=== PATIENT | female | born 1990 | race Two or more races ===

== ENCOUNTER 2024-10-25 21:31 | Emergency (ER) | payer MEDICAID ==
[~2024-10-25] VITALS: Ht 160 cm; Wt 77.3 kg
[2024-10-26 00:26] VITALS: BP 99/61; PULSE 63; RESP 18; TEMP 98.7; O2SAT 99
[2024-10-26] MEDS ORDERED: ACET500T58 PO (00:34)
--- NOTE | 2024-10-26 00:34 | ED.PDOC ---
Musculoskeletal HPI Comments 34-year-old female presents to ER with complaints of right ankle pain x1 day. Patient reports that she started experiencing pain/swelling to right lateral ankle at 7:30 p.m. prior to arrival to ER s/p rolling her right ankle inwards while [place] a park. She rates her current pain a 10/10 to right lateral ankle without radiation. Denies use of medications for current symptoms and states she is not able to bear weight on right leg due to right lateral ankle pain. Denies right foot pain, numbness/tingling or any further symptoms/complaints Chief Complaint: Fall Injury Time Seen by MD: 22:17 Primary Care Provider: UNKNOWN Reviewed Notes: Nurses Notes, Medications, Allergies Allergies: Coded Allergies: NO KNOWN ALLERGIES (Unverified , 10/25/24) Home Meds Active Scripts Acetaminophen (Acetaminophen) 500 Mg Tab, 500 MG PO Q4HPRN, #30 TAB 0 Refills Prov:ZOFIA MARKS 10/26/24 Information Source: Patient Mode of Arrival: Wheelchair Past Medical History PAST MEDICAL HISTORY: Denies Surgical History: DIRECTOR OF REHABILITATION History: No Pertinent DIRECTOR OF REHABILITATION History [facility] 10-26-24 Family History Family History: Unknown Social History Smoker: Cigarettes, Less Than 1 Pack/Day Alcohol: Denies ETOH Use Drugs: Denies Drug Use Lives In: Home Constitutional: denies: chills, diaphoresis, fatigue, fever, malaise, sweats, weakness, others EENTM: denies: blurred vision, double vision, ear bleeding, ear discharge, ear drainage, ear pain, ear ringing, eye pain, eye redness, hearing loss, mouth pain, mouth swelling, nasal discharge, nose bleeding, nose congestion, nose pain, photophobia, tearing, throat pain, throat swelling, voice changes, others Respiratory: denies: cough, hemoptysis, orthopnea, SOB at rest, shortness of breath, SOB with excertion, stridor, wheezing, others Cardiovascular: denies: chest pain, dizzy spells, diaphoresis, Dyspnea on exertion, edema, irregular heart beat, left arm pain, lightheadedness, palpitations, PND, syncope, others Gastrointestinal: denies: abdomen distended, abdominal pain, blood streaked bowels, constipated, diarrhea, dysphagia, difficulty swallowing, hematemesis, melena, nausea, poor appetite, poor fluid intake, rectal bleeding, rectal pain, vomiting, others Genitourinary: denies: abnormal vagina bleeding, burning, dyspareunia, dysuria, flank pain, frequency, hematuria, incontinence, pain, , vagina discharge, urgency, others Neurological: denies: dizziness, fainting, headache, left sided numbness, left sided weakness, numbness, paresthesia, pre-existing deficit, right sided numbness, right sided weakness, seizure, speech problems, tingling, tremors, weakness, others Musculoskeletal: reports: others (As stated in HPI) Integumetry: reports: others (As stated in HPI) Allergic/Immunocompromised: denies: Difficulty Healing, Frequent Infections, Hives, Itching, others Hematologic/Lymphatic: denies: anemia, blood clots, easy bleeding, easy bruising, swollen glands, others Endocrine: denies: excessive hunger, excessive sweating, excessive thirst, excessive urination, flushing, intolerance to cold, intolerance to heat, unexplained weight gain, unexplained weight loss, others Psychiatric: denies: anxiety, bipolar disorder, depression, hopeless, panic disorder, schizophrenia, sleepless, suicidal, others Physical Exam General Appearance: No Apparent Distress, Obese HEENT: PERRL/EOMI Neck: Full Range of Motion, Non-Tender, Normal Respiratory: Chest Non-Tender, Lungs Clear, No Accessory Muscle Use, No Respiratory Distress, Normal Breath Sounds Cardiovascular: No Murmur, No Gallop, Regular Rate/Rhythm Breast Exam: Deferred Gastrointestinal: NOT DONE Genitalia: Deferred Pelvic: Deferred Rectal: Deferred Extremities: No calf tenderness, Normal capillary refill, Normal range of motion Musculoskeletal : Extremity Location: Ankle (TTP/mild swelling/ecchymosis noted to right lateral malleolus. No other TTP to right ankle noted. No TTP/skin changes to right foot noted. Pulses intact. Patient able to bear minimal weight on right leg due to pain localized to right lateral malleolus) Neurologic: Alert, relief man II-XII nml as Tested, No Motor Deficits, Normal Affect, Normal Mood, No Sensory Deficits Cerebellar Function: Normal Reflexes: Normal Skin: Dry, Warm Peripheral Pulses: 2+ dorsalis pedis (R), 2+ dorsalis pedis (L) Lymphatic: No Adenopathy Was a procedure done? Was a procedure done?: No Sedation Sedation?: No Differential Diagnosis EXT Differential Diagnosis: Fracture, Dislocation, Neurovascular injury X-Ray, Labs, Meds, VS Vital Signs Date Time Temp Pulse Resp B/P (MAP) Pulse Ox O2 Delivery O2 Flow Rate FiO2 10/26/24 00:26 99 Room Air* 0 21 10/26/24 00:26 98.7 63 18 99/61 (74) 99 98.7 10/25/24 23:03 98.7 63 18 99/61 (74) 99 98.7 Current Medications Medications (Trade) Dose Ordered Sig/Evelyn Route Start Time Stop Time Status Last Admin Acetaminophen/ Hydrocodone Bitart ([place] 5/325MG Tab) 1 tab ONCE ONCE PO 10/26/24 00:15 10/26/24 00:16 DC 10/26/24 00:41 Ondansetron HCl (Zofran Po) 4 mg ONCE ONCE PO 10/26/24 00:15 10/26/24 00:16 DC 10/26/24 00:42 PATIENT: RICK BYRDACCT: [id number] UNIT: [id number] : 1990 LOC: ER ROOM / BED: / AGE / SEX: 34 / F ADM STATUS: REG ER SERVICE ORDERING PHYSICIAN: ZOFIA MARKS PROCEDURE(s): RANKL - R ANKLE 3 VIEW REASON: right ankle pain ORDER NUMBER(s): [id number], ACCESSION NUMBER(s): [id number] CLINICAL INDICATION: right ankle pain TECHNIQUE: XY R ANKLE 3 VIEW Comparison: None FINDINGS/IMPRESSION: : Nondisplaced obliquely oriented distal fibular fracture. The ankle mortise is intact and preserved. Moderate lateral malleolar soft tissue swelling and small anterior and posterior tibiotalar effusion. Retrocalcaneal enthesopathy. ATED BY: SUKH HERNANDEZ MD DICTATED DATE/TIME: 10/26/24105 SIGNED BY: SUKH HERNANDEZ MD SIGNED DATE/TIME: 10/26/24105 CC: waiver signed [place] 5/325 mg p.o. ordered Zofran 4 mg p.o. ordered Right ankle x-ray reviewed Right short leg posterior splint applied Crutches ordered, patient educated on proper use. Was advised on use at all times Patient neurovascularly intact and reported improvement in symptoms prior to discharge Advised on rest/no strenuous activity, elevation and alternate ice on/off as needed for pain/swelling Patient provided information with regards to local PCPs and orthopedics and advised to follow up in 1-2 days Patient verbalized understanding and agreeable with current plan of care Advised to return to ER immediately if symptoms worsen Images Reviewed?: Images reviewed and evaluated by me Time of 1ST Reevaluation: 00:02 Reevaluation 1ST: N/A Patient Education/Counseling: Diagnosis, Treatment, Prognosis, Need For Follow Up Family Education/Counseling: No Family Present Departure 1 Departure Time of Disposition: 01:12 Impression: Primary Impression: Ankle fracture, right Qualified Codes: S82.891A - Other fracture of right lower leg, initial encounter for closed fracture Disposition: HOME / SELF CARE / HOMELESS Condition: Stable Referrals: SEEMA WILSON MD Right distal fibula fracture e-Prescriptions Ibuprofen (Ibuprofen) 800 Mg Tab 1 TAB PO TID PRN, #30 TAB 0 Refills Prov: ZOFIA MARKS 10/26/24 Discharged With: Friend Critical Care Note Critical Care Time?: No Stability Stability form required: No Heart Score Heart Score: Heart Score Response (Comments) Value History N/A 0 EKG N/A 0 Age N/A 0 Risk Factors N/A 0 Troponin N/A 0 Total 0 ZOFIA MARKS Oct 26, 2024 00:34
[2024-10-26] MEDS: HYDROcodone-ACET 5/325MG TAB PO ONE (00:41)
[2024-10-26] MEDS: ONDANSETRON ODT 4 MG TAB PO ONE (00:42)
--- NOTE | 2024-10-26 01:08 | DVH ---
CLINICAL INDICATION: right ankle pain TECHNIQUE: XY R ANKLE 3 VIEW Comparison: None FINDINGS/IMPRESSION: : Nondisplaced obliquely oriented distal fibular fracture. The ankle mortise is intact and preserved. Moderate lateral malleolar soft tissue swelling and small anterior and posterior tibiotalar effusion. Retrocalcaneal enthesopathy.
[2024-10-26] MEDS ORDERED: IBUP-1456 PO (01:14)
== END 2024-10-26 01:46 | disposition home or self-care (01) ==
LOC: ER 21:31
DX: S82.831A Other fracture of upper and lower end of right fibula, initial encounter for closed fracture (principal); F17.210 Nicotine dependence, cigarettes, uncomplicated; Z98.890 Other specified postprocedural states; Z79.899 Other long term (current) drug therapy; X50.9XXA Other and unspecified overexertion or strenuous movements or postures, initial encounter; Y93.89 Activity, other specified; Y92.830 Public park as the place of occurrence of the external cause; Y99.8 Other external cause status
CPT/HCPCS: 29515; 73610; 99283; Q0162